=== PATIENT | male | born 1940 | race Caucasian/White ===

== ENCOUNTER → 2017-12-23 | Outpatient (CLI) | payer OTHER | LOC: LAB SHORT 15:20 → PLD 15:20 | DX: D48.5 Neoplasm of uncertain behavior of skin (principal) | CPT/HCPCS: 88305 ==

== ENCOUNTER → 2018-01-03 | Outpatient (CLI) | payer OTHER | END | disposition home or self-care (01) | LOC: PLD 14:28 → LAB SHORT 14:28 | DX: L57.0 Actinic keratosis (principal) | CPT/HCPCS: 88305 ==

== ENCOUNTER → 2018-12-08 | Outpatient (CLI) | payer OTHER | END | disposition home or self-care (01) | LOC: PLD 14:09 → LAB SHORT 14:09 | DX: L57.0 Actinic keratosis (principal) | CPT/HCPCS: 88305 ==

== ENCOUNTER → 2019-01-16 | Outpatient (CLI) | payer OTHER | END | disposition home or self-care (01) | LOC: PLD 10:04 → LAB SHORT 10:04 | DX: D22.4 Melanocytic nevi of scalp and neck (principal) | CPT/HCPCS: 88305 ==

== ENCOUNTER 2020-05-08 06:06 | Day surgery (SDC) | payer OTHER ==
[~2020-05-08] VITALS: Ht 170.2 cm; Wt 75.6 kg
[~2020-05-08 06:06] MED LIST: EUTHYROX50 MCG PO; METF500 PO; OMEP20ER PO; STATIN PO
[2020-05-08] MEDS ORDERED: GABA100 PO (07:06)
[2020-05-08] MEDS ORDERED: ROSU5 PO (07:07)
--- NOTE | 2020-05-08 11:07 | NUR ---
PT ARRIVED TO ROOM 214 FROM PACU S/P L TOTAL KNEE PT HAS BULKY DRESSING C/D/I WITH POLAR PACK PT IS DROWSY REPORTS MIN PAIN 1-2/10 CAN WIGGLE TOES PT DENIES NAUSEA CL GIVEN
--- NOTE | 2020-05-08 12:00 | NUR ---
pt eating lunch s/o at bedside
--- NOTE | 2020-05-08 14:45 | NUR ---
pt working with physical therapy amb in hallway with fww voided and sitting up in recliner polar pack in placed offered pain meds pt declined
--- NOTE | 2020-05-08 15:40 | NUR ---
pt reports still min pain overall req to amb in the hallway again and to try and void
--- NOTE | 2020-05-08 17:45 | NUR ---
pt up in recliner eating dinner
--- NOTE | 2020-05-09 03:38 | NUR ---
SHIFT SUMMARY: POD 1 LEFT TOTAL KNEE REPLACEMENT. PT IS ALERT AND ORIENTED X4 WHILE AWAKE. HE HAS BEEN ASLEEP MAJORITY OF THE SHIFT BUT IS EASILY AROUSABLE. VS ARE WNL AND IS ON RA. PT REPORTS NOT HAVING ANY PAIN BUT ACCEPTS TAKING THE SCHEDULED TORADOL AND TYLENOL. LEFT KNEE IS DENA WRAPPED AND IS D/C/I. PT HAS BEEN ABLE TO TOLERATE PO INTAKE AND VOIDING. HE HAS WALKED TWICE IN THE [facility] WITH ONE OF THE SYSTEMS INTEGRATOR'S AND TOLERATED WELL. PT IS CURRENTLY LYING DOWN IN BED ASLEEP WITH CALL LIGHT IN REACH. THE PLAN IS FOR THE PATIENT TO BE D/C TODAY.
[2020-05-09 05:09] LABS: BASOPHILS ABSOLUTE AUTO 0.01 K/mm3 (0.00-0.23); BASOPHILS PERCENT AUTO 0 % (0-2); EOSINOPHILS PERCENT AUTO 0 % (0-6); Hematocrit 36.7 % (37.0-53.0); Hemoglobin 12.2 g/dL (13.5-17.5); IMMATURE GRAN ABSOLUTE AUTO 0.06 K/mm3 (0.00-0.10); IMMATURE GRAN PERCENT AUTO 1 % (0-1); LYMPHOCYTES ABSOLUTE AUTO 0.82 K/mm3 (0.84-5.20); LYMPHOCYTES PERCENT AUTO 7 % (21-46); MONOCYTES ABSOLUTE AUTO 0.92 K/mm3 (0.16-1.47); MONOCYTES PERCENT AUTO 7 % (4-13); Mean Corpuscular HGB 32.5 pg (26.0-34.0); Mean Corpuscular HGB Conc 33.2 g/dL (31.5-36.5); Mean Corpuscular Volume 98 fL (80-100); Mean Platelet Volume 9.5 fL (9.1-12.4); NEUTROPHILS ABSOLUTE AUTO 10.79 K/mm3 (1.96-9.15); NEUTROPHILS PERCENT AUTO 86 % (41-73); Platelet Count 239 K/mm3 (150-400); RDW Standard Deviation 43.5 fL (35.1-46.3); Red Blood Cell Count 3.75 M/mm3 (4.30-5.90)
[2020-05-09 05:26] LABS: Anion Gap 6 mmol/L (6-16); Blood Urea Nitrogen 18 mg/dL (8-24); CO2, Blood 27 mmol/L (21-32); Calcium, Blood 8.9 mg/dL (8.5-10.1); Chloride, Blood 107 mmol/L (98-108); Creatinine, Blood 0.78 mg/dL (0.60-1.20); Glomerular Filtration Rate >60 (60-); Glucose, Blood 158 mg/dL (70-99); Magnesium, Blood 2.2 mg/dL (1.6-2.4); Potassium, Blood 4.4 mmol/L (3.5-5.5); Sodium, Blood 140 mmol/L (136-145)
--- NOTE | 2020-05-09 10:19 | NUR ---
DR MILLER HERE THIS AM AND CHANGED DRESSING. DR REPORTED TO GIVE DILAUDID THIS AM TO SEE IF IT WORKED BETTER FOR PT. PT REPORTS IT FEELS THAT IT WORKED BETTER FOR HIM. PT FAMILY IN ROOM. PT/FAMILY REPORTS UNDERSTANDING OF DRESSING CHANGES, POLAR PAC THEY WERE EDUCATED ON THEM. PT GIVEN DRESSINGS TO TAKE HOME. PT WAITING FOR THERAPY TO SEE THEM.
[2020-05-09] MEDS ORDERED: ASPI81CH PO (11:33)
[2020-05-09] MEDS ORDERED: PROM25 PO (11:35)
[2020-05-09] MEDS ORDERED: SULTRIDS PO (11:36)
[2020-05-09] MEDS ORDERED: HYDMOR2 PO (11:39)
--- NOTE | 2020-05-09 13:11 | NUR ---
DISCHARGE: PT EATING AND DRINKING, VOIDING, PASSING GAS. PT REPORTS PAIN MEDICATION WORKING MUCH BETTER, DOES NOT FEEL IF NOT ABLE TO GO TO SLEEP LIKE WHEN HE HAD THE OXYCODONE. PT REPORTS HAVING WALKER AT HOME. PT CLEARED BY THERAPY TO GO HOME. PT/FAMILY REPORTS UNDERSTANDING OF DISCHARGE INSTRUCTIONS INCLUDING MEDICATIONS, ICE MACHINE, DRESSING CHANGES. PT SENT WITH DRESSING SUPPLIES AND ICE MACHINE WELL SCRIPT FOR PAIN MEDICATION-SEE PHOTO COPY-. PT SENT WITH PAPERWORK INCLUDING DR MILLER'S HAND-0UT.
== END 2020-05-09 13:05 | disposition home or self-care (01) ==
LOC: ORSCMMR 06:06 → ORD 07:30 → ORSCMMR 07:30 → SURS 10:36 → ORSCMMR 05-09 13:05
PROVIDERS: Orthopaedic Surgery
PROC: 8E0YXBZ Computer Assisted Procedure of Lower Extremity (ICD-10-PCS; principal; 2020-05-08 07:30)
PROC: 0SRD0J9 Replacement of Left Knee Joint with Synthetic Substitute, Cemented, Open Approach (ICD-10-PCS; principal; 2020-05-08 07:30)
DX: M17.12 Unilateral primary osteoarthritis, left knee (principal); Z87.891 Personal history of nicotine dependence; E11.40 Type 2 diabetes mellitus with diabetic neuropathy, unspecified; Z79.84 Long term (current) use of oral hypoglycemic drugs; E03.9 Hypothyroidism, unspecified; Z79.899 Other long term (current) drug therapy
CPT/HCPCS: 36415; 73560-LT; 80048; 82947; 83735; 85025; 97110; 97116; 97162; 97530; A9270; A9270-GY; C1713; C1776; J0171; J0461; J0735; J1100; J1815; J1885; J2250; J2405; J2704; J2795; J3010; J3370; J7030; J7120

== ENCOUNTER → 2020-08-29 | Outpatient (CLI) | payer OTHER ==
[~2020-08-29] MED LIST changes: +ASPI81CH PO; +GABA100 PO; +HYDMOR2 PO; +PROM25 PO; +ROSU5 PO; +SULTRIDS PO
== END | disposition home or self-care (01) ==
LOC: LAB SHORT 14:54 → LAB 14:54
DX: D04.39 Carcinoma in situ of skin of other parts of face (principal)
CPT/HCPCS: 88305

== ENCOUNTER → 2022-04-14 | Outpatient (CLI) | payer OTHER | END | disposition home or self-care (01) | LOC: LAB 11:19 → LAB SHORT 11:19 | DX: C44.329 Squamous cell carcinoma of skin of other parts of face (principal) | CPT/HCPCS: 88305 ==

== ENCOUNTER → 2022-06-08 | Outpatient (CLI) | payer OTHER | END | disposition home or self-care (01) | LOC: LAB SHORT 11:01 | DX: C44.222 Squamous cell carcinoma of skin of right ear and external auricular canal (principal) | CPT/HCPCS: 88305 ==

== ENCOUNTER → 2024-10-26 | Outpatient (CLI) | payer OTHER | LOC: LAB SHORT 11:28 → LAB 11:28 | DX: J41.1 Mucopurulent chronic bronchitis (principal) | CPT/HCPCS: 87070; 87186; 87205 ==